=== PATIENT | male | born 1990 | race Caucasian/White ===

== ENCOUNTER 2021-03-14 16:58 | Emergency (ER) | payer SELFPAY ==
[~2021-03-14] VITALS: Ht 182.8 cm; Wt 104.3 kg
[2021-03-14] MEDS ORDERED: ORPHENADRINE 60 MG/2 ML (NORFLEX) AMP (ED ONLY) IM STA (17:12)
--- NOTE | 2021-03-14 17:23 | ED Back Pain ---
General Chief Complaint: Back Problems Stated Complaint: BACK PAIN Nursing Triage Note: PT BROUGHT IN BY [facility] FROM HOME WITH COMPLAINT OF LOW BACK PAIN. PT STATES HE WAS BENDING OVER TO PUT HIS UNDERWEAR AND STARTING HAVING SEVERE BACK PAIN. EMS GAVE 100MCG FENTANYL History of Present Illness Date Seen by Provider: Mar 14, 2021 Time Seen by Provider: 17:00 Initial Comments 30-year-old male presents via EMS for lumbar back pain. He reports waking up at 1400, taking shower, when attempting to put his underwear on, when he had a pulling sensation in his lower back. Since then he has been in extreme pain. He had put a hot pack on his back but had no relief of symptoms. 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 No history of Lumbar back issues. He reports using marijuana routinely for pain management. No bowel or bladder incontinence or retention. Location: Lumbar Spine Timing/Duration: 1-3 Hours Severity: Moderate Pain/Injury Location: Back Method of Injury: Other Associated Symptoms: muscle spasms; No weakness, No numbness in legs/feet, No tingling in legs/feet, No sensory/motor loss; lower back pain; No loss of bladder control, No loss of bowel control Allergies and Home Medications Allergies Coded Allergies: atomoxetine (Verified Allergy, Unknown, 03/14/21) Patient Home Medication List Home Medication List Reviewed: Yes Cyclobenzaprine HCl (Cyclobenzaprine HCl) 10 Mg Tablet, 10 MG PO Q8H PRN for SPASMS Prescribed by: AIDE GÓMEZ on 03/14/211855 Tramadol HCl (Tramadol HCl) 50 Mg Tablet, 50 MG PO Q6H PRN for PAIN Prescribed by: AIDE GÓMEZ on 03/14/211855 Review of Systems Constitutional: no symptoms reported, see HPI Musculoskeletal: see HPI, back pain, muscle pain, muscle stiffness, muscle cramps All Other Systems Reviewed Negative Unless Noted: Yes Past Edgfwto-Omewoh-Jeetcz Hx Patient Social History Tobacco Use?: No Use of E-Cig and/or Vaping dev: No E-Cig or Vaping type used: Marijuana Substance use?: Yes Substance type: Marijuana Substance frequency: Daily Alcohol Use?: Yes Alcohol Frequency: Rarely Pt feels they are or have been: No Past Medical History Surgeries: Yes Appendectomy Gastrointestinal: No Family Medical History Reviewed Nursing Family Hx Physical Exam Vital Signs Vital Signs - First Documented 03/14/21 17:00 Temp 35.9 Pulse 89 Resp 20 B/P (MAP) 135/86 (102) Pulse Ox 99 O2 Delivery Room Air Capillary Refill : Less Than 3 Seconds Height, Weight, BMI Height: '" Weight: lbs. oz. kg; 31.00 BMI Method: General Appearance: No Apparent Distress, WD/WN Cardiovascular: Regular Rate, Rhythm, No Edema Respiratory: Chest Non Tender, Lungs Clear Gastrointestinal: Normal Bowel Sounds, Non Tender, Soft Back: Normal Inspection, Decreased Range of Motion, Muscle Spasm, Vertebral Tenderness, Other (Power V/V L4-S1, + SLR. ) Extremity: Normal Capillary Refill, Normal Inspection, Normal Range of Motion, Non Tender, No Calf Tenderness Neurologic/Psychiatric: Alert, Oriented x3, No Motor/Sensory Deficits, Normal Mood/Affect Skin: Normal Color, Warm/Dry Progress/Results/Core Measures Results/Orders My Orders Orders - AIDE GÓMEZ Ct Lumbar Spine Wo (03/14/21 17:15) Orphenadrine Inj (Ed Only) (Norflex Inje (03/14/21 17:24) Vital Signs/I&O 03/14/21 17:00 Temp 35.9 Pulse 89 Resp 20 B/P (MAP) 135/86 (102) Pulse Ox 99 O2 Delivery Room Air Blood Pressure Mean: 102 Diagnostic Imaging Diagonstic Imaging: CT Plain Films/CT/US/NM/MRI: other (L Spine) Comments NAME: ROBBIN RICE [facility] REC#: [id number] PT STATUS: REG ER : 1990 PHYSICIAN: AIDE GÓMEZ ADMIT DATE: 03/14/21/ER Draft Date of Exam:03/14/21 CT LUMBAR SPINE WO PROCEDURE: CT lumbar spine without contrast. TECHNIQUE: Multiple contiguous axial images were obtained through the lumbar spine without the use of intravenous contrast. Sagittal and coronal reformations were then performed. Auto Exposure Controls were utilized during the CT exam to meet ALARA standards for radiation dose reduction. INDICATION: Back strain, radiculopathy, pain COMPARISON: None available FINDINGS: 5 lumbar type vertebral bodies are assumed. Alignment of the lumbar spine is well maintained. Vertebral body heights are well-maintained. Mild disc space height loss at L4/L5 with associated moderate sized diffuse disc bulge. Congenital posterior fusion defect of L5. No acute fracture or dislocation. The visualized portions of the sacroiliac joints appear intact. The paraspinal soft tissues are unremarkable. No severe osseous neural foraminal stenosis. IMPRESSION: No acute osseous fracture. Disc space height loss with disc bulge at L4/L5. There is at least resulting mild to moderate central canal stenosis. This could be further evaluated with an MRI of the lumbar spine as clinically indicated. Dictated on workstation # [id number] Dict: 03/14/211838 Trans: 03/14/211848 [facility] [id number] Interpreted by: PEGGY ACOSTA MD Electronically signed by: Reviewed: Reviewed by Me Departure Impression Primary Impression: Lumbar back pain Additional Impression: Lumbar radiculopathy Disposition: HOME, SELF-CARE Condition: Improved Departure-Patient Inst. Decision time for Depature: 18:30 Referrals: UNKNOWN (PCP/Family) Primary Care Physician Patient Instructions: Back Exercises, Low Back Pain (DC), Muscle Strain (DC) Add. Discharge Instructions: Alternate between heat and ice to your low back. Follow-up with the primary care provider at [facility] if your symptoms are not improving or worsen. Take medications as prescribed. Gentle Range of Motion to your back and walking will help. Return to the emergency department for new, urgent healthcare needs. All discharge instructions reviewed with patient and/or family. Voiced understanding. Scripts Tramadol HCl (Tramadol HCl) 50 Mg Tablet 50 MG PO Q6H PRN for PAIN, #20 TAB 0 Refills Prov: AIDE GÓMEZ 03/14/21 Cyclobenzaprine HCl (Cyclobenzaprine HCl) 10 Mg Tablet 10 MG PO Q8H PRN for SPASMS, #15 TAB 0 Refills Prov: AIDE GÓMEZP 03/14/21 AIDE GÓMEZ Mar 14, 2021 17:23
[2021-03-14] MEDS ORDERED: ORPHENADRINE 60 MG/2 ML (NORFLEX) AMP (ED ONLY) IV STA (17:24)
--- NOTE | 2021-03-14 18:51 | Diagnostic Imaging Report ---
PROCEDURE: CT lumbar spine without contrast. TECHNIQUE: Multiple contiguous axial images were obtained through the lumbar spine without the use of intravenous contrast. Sagittal and coronal reformations were then performed. Auto Exposure Controls were utilized during the CT exam to meet ALARA standards for radiation dose reduction. INDICATION: Back strain, radiculopathy, pain COMPARISON: None available FINDINGS: 5 lumbar type vertebral bodies are assumed. Alignment of the lumbar spine is well maintained. Vertebral body heights are well-maintained. Mild disc space height loss at L4/L5 with associated moderate sized diffuse disc bulge. Congenital posterior fusion defect of L5. No acute fracture or dislocation. The visualized portions of the sacroiliac joints appear intact. The paraspinal soft tissues are unremarkable. No severe osseous neural foraminal stenosis. IMPRESSION: No acute osseous fracture. Disc space height loss with disc bulge at L4/L5. There is at least resulting mild to moderate central canal stenosis. This could be further evaluated with an MRI of the lumbar spine as clinically indicated. Dictated by: Dictated on workstation # [id number]
[2021-03-14] MEDS ORDERED: TRM50T PO (18:56)
[2021-03-14] MEDS ORDERED: CYCL10TA9 PO (18:56)
[2021-03-14 19:16] VITALS: BP 128/86
== END 2021-03-14 19:16 | disposition home or self-care (01) ==
LOC: ER 17:00
DX: M54.16 Radiculopathy, lumbar region (principal)
CPT/HCPCS: 72131